=== PATIENT | female | born 1995 | race Two or more races ===

== ENCOUNTER 2024-06-27 18:04 | Emergency (ER) | payer OTHER ==
[~2024-06-27] VITALS: Ht 154.9 cm; Wt 50.2 kg
[2024-06-27 18:17] VITALS: BP 98/61; PULSE 113; RESP 18; O2SAT 100
[2024-06-27] MEDS: ACETAMINOPHEN 325 MG TAB PO ONE (19:33)
[2024-06-27] MEDS ORDERED: PRED20TA2 PO (19:41)
[2024-06-27] MEDS ORDERED: ACET500T58 PO (19:41)
--- NOTE | 2024-06-27 19:41 | ED.PDOC ---
History of Present Illness HPI Comments 29-year-old female presents to ER with flu-like symptoms x3 days. Patient reports that she has been experiencing productive cough with green phlegm, congestion, chills, body aches and intermittent fever x3 days. She rates her current body aches pain a 7/10. Notes that she last took NyQuil at 5:00 a.m. prior to arrival to ER. Patient presents to ER febrile on arrival at 101.0 F, in no distress and notes she has been around her kids who have also recently been sick. Denies shortness of breath, hemoptysis, chest pain, sore throat, headache, n/v, abdominal pain or any further symptoms/complaints Chief Complaint: Flu like Time Seen by MD: 18:10 Primary Care Provider: VERNELL Marte Notes: Nurses Notes, Medications, Allergies Information Source: Patient Past Medical History PAST MEDICAL HISTORY: UTI'S Surgical History: Family History Family History: Unknown Social History Smoker: Non-Smoker Alcohol: Denies ETOH Use Drugs: Denies Drug Use Lives In: Home Constitutional: See HPI EENTM: See HPI Respiratory: See HPI Cardiovascular: No Symptoms Reported Genitourinary: No Symptoms Reported Neurological: No Symptoms Reported Musculoskeletal: No Symptoms Reported Integumentary: No Symptoms Reported Allergic/Immunocompromised: others (denies) Hematologic/Lymphatic: No Symptoms Reported Endocrine: No Symptoms Reported Psychiatric: No symptoms Reported Physical Exam General Appearance: No Apparent Distress HEENT: Normal ENT Inspection, PERRL/EOMI, Pharynx Normal, TMs Normal Neck: Full Range of Motion, Non-Tender, Normal Respiratory: Chest Non-Tender, Lungs Clear, No Accessory Muscle Use, No Respiratory Distress, Normal Breath Sounds Cardiovascular: No Murmur, No Gallop, Regular Rate/Rhythm Breast Exam: Deferred Gastrointestinal: Non Tender, No Pulsatile Mass, Soft Genitalia: Deferred Pelvic: Deferred Rectal: Deferred Extremities: Normal capillary refill, Normal range of motion Neurologic: Alert, compliance counsel II-XII nml as Tested, No Motor Deficits, Normal Affect, Normal Mood, No Sensory Deficits Cerebellar Function: Normal Reflexes: Normal Skin: Dry, Normal Color, Warm Peripheral Pulses: 2+ Radial (R), 2+ Radial (L), 2+ Brachial (R), 2+ Brachial (L) Lymphatic: No Adenopathy Was a procedure done? Was a procedure done?: No Sedation Sedation?: No Fever Differential Dx Differential Diagnosis: Pneumonia, Sepsis, Pharyngitis, Other (COVID-19) X-Ray, Labs, Meds, VS Vital Signs Date Time Temp Pulse Resp B/P (MAP) Pulse Ox O2 Delivery O2 Flow Rate FiO2 06/27/24 20:46 100.1 100.1 06/27/24 20:46 100.1 06/27/24 19:45 100.4 06/27/24 18:17 101.0 113 18 98/61 (73) 100 Lab Test 06/27/24 19:43 06/27/24 19:29 Range/Units Urine Color Yellow Yellow Urine Clarity Turbid H Clear Urine pH 6.0 5.0-9.0 Urine Specific [place] 1.028 1.001-1.035 Urine Protein 1+ H Negative Urine Ketones 1+ H Negative Urine Blood 2+ H Negative /uL Urine Nitrite 2+ H Negative Urine Bilirubin Negative Negative Urine Urobilinogen 2 H Negative mg/dL Urine Leukocyte Esterase 1+ Negative /uL Urine RBC 5 0 - 4 /hpf Urine WBC 29 0 - 5 /hpf Urine Squamous Epithelial Cells Few <5 /hpf Urine Bacteria Mod H None Seen /hpf Urine Mucus Few None Seen Urine Glucose Trace Normal mg/dL Influenza Type A Antigen Positive Negative Influenza Type B Antigen Negative Negative SARS-CoV-2 Antigen (Rapid) Negative NEGATIVE Current Medications Medications (Trade) Dose Ordered Sig/Miki Route Start Time Stop Time Status Last Admin Acetaminophen (Tylenol Solution Oral) 650 mg ONCE ONCE PO 06/27/24 19:45 06/27/24 19:46 DC 06/27/24 19:45 ALL SWAB RESULTS REVIEWED-INFLUENZA A POSITIVE URINALYSIS REVIEWED-URINE NITRITES 2+, URINE BLOOD 2+, URINE LEUKOCYTE ESTERASE 1+ ROCEPHIN 1 G IM ORDERED Patient had improvement in symptoms, tolerating p.o. intake well and in no distress prior to discharge Advised to drink plenty of fluids Advised to follow up with PCP in 1-2 days Patient verbalized understanding and agreeable with current plan of care Advised to return to ER immediately if symptoms worsen Time of 1ST Reevaluation: 19:12 Reevaluation 1ST: N/A Time of 2ND Reevaluation: 20:10 Reevaluation 2ND: Improved Patient Education/Counseling: Diagnosis, Treatment, Prognosis, Need For Follow Up Family Education/Counseling: No Family Present Departure 1 Departure Time of Disposition: 20:12 Impression: Primary Impression: Influenza A Additional Impressions: Upper respiratory infection Qualified Codes: J06.9 - Acute upper respiratory infection, unspecified UTI (urinary tract infection) Qualified Codes: N30.01 - Acute cystitis with hematuria Disposition: HOME / SELF CARE / HOMELESS Condition: Stable e-Prescriptions Amoxicillin & Pot Clavulanate (Amoxicillin/Potassium Cla) 875 Mg Tab 1 TAB PO BID for 7 Days, #14 TAB Prov: KIKE BENSON 06/27/24 Oseltamivir Phosphate (TAMIFLU) 6 Mg/Ml [place] 12.5 ML PO BID for 5 Days, #125 ML 0 Refills Prov: KIKE BENSON 06/27/24 Prednisone (Prednisone) 20 Mg Tab 20 MG PO BID for 5 Days, #10 TAB 0 Refills Prov: KIKE BENSON 06/27/24 Acetaminophen (Acetaminophen) 500 Mg Tab 500 MG PO Q4HPRN, #30 TAB 0 Refills Prov: KIKE BENSON 06/27/24 Discharged With: Self Critical Care Note Critical Care Time?: No Stability Stability form required: No Heart Score Heart Score: Heart Score Response (Comments) Value History N/A 0 EKG N/A 0 Age N/A 0 Risk Factors N/A 0 Troponin N/A 0 Total 0 KIKE BENSON Jun 27, 2024 19:41
[2024-06-27] MEDS: ACETAMINOPHEN 650 mg PER 20.3 mL UD PO ONE (19:45)
[2024-06-27 20:12] LABS: Rapid Influenza A Positive (Negative); Rapid Influenza B Negative (Negative)
[2024-06-27 20:13] LABS: COVID19 ANTIGEN SOFIA FIA NEGATIVE (NEGATIVE)
[2024-06-27] MEDS ORDERED: OSEL6SUS5 PO (20:16)
[2024-06-27 20:25] LABS: Urine Bacteria MOD /hpf (None Seen); Urine Blood 2+ /uL (Negative); Urine Clarity Turbid (Clear); Urine Color Yellow (Yellow); Urine Mucus FEW (None Seen); Urine Protein, UAD 1+ (Negative); Urine Specific Gravity 1.028 (1.001-1.035); Urine Squamous Epithelial Cell FEW /hpf (<5); Urine Urobilinogen 2 mg/dL (Negative); Urine WBC 29 /hpf (0 - 5)
[2024-06-27] MEDS ORDERED: AMOX875T4 PO (20:38)
[2024-06-27 20:46] VITALS: TEMP 100.1
[2024-06-27] MEDS: cefTRIAXone SOD 1,000 MG VL IM ONE (20:46)
== END 2024-06-27 20:50 | disposition home or self-care (01) ==
LOC: ER 18:04
DX: J10.1 Influenza due to other identified influenza virus with other respiratory manifestations (principal); N39.0 Urinary tract infection, site not specified; Z98.890 Other specified postprocedural states; Z20.822 Contact with and (suspected) exposure to COVID-19
CPT/HCPCS: 36415; 81001; 87426; 87804; 99283; J0696